=== PATIENT | female | born 1980 | race Caucasian/White ===

== ENCOUNTER → 2016-12-07 09:26 | Emergency (ER) | payer SELFPAY ==
[~2016-12-07] VITALS: Ht 162.6 cm; Wt 79.5 kg
[2016-12-07 09:26] VITALS: BP 107/61
[~2016-12-07 09:26] MED LIST: AMBIEN10 MG PO; ANIMAL CHEWS1 EACH PO; AUGMENTIN; CARAFATE100 MG/ML PO; CYMBALTA20 MG PO; FETZIMA40 MG PO; FLEXERIL10 MG PO; FLINTSTONES1 EACH PO; HYDROCODON-ACE1 EAC7 PO; LEVAQUIN500 MG PO; MELATONIN10 M1 PO; NAPROSYN500 MG PO; PERCOCET 5/31 TABLET PO; PRAVASTATIN SOD40 MG PO; PREDNISONE; PREDNISONE20 MG PO; PROTONIX20 MG PO; TRAZODONE HCL50 MG PO; ZOLOFT50 MG PO; [UNRECOGNIZED DRUG - OTHER] PO
== END | disposition home or self-care (01) ==
LOC: EME 07:06
PROC: 3E0234Z Introduction of Serum, Toxoid and Vaccine into Muscle, Percutaneous Approach (ICD-10-PCS; principal; 2016-12-07)
DX: S91.332A Puncture wound without foreign body, left foot, initial encounter (principal); Z23 Encounter for immunization; W22.8XXA Striking against or struck by other objects, initial encounter; Y93.01 Activity, walking, marching and hiking; Z88.1 Allergy status to other antibiotic agents
CPT/HCPCS: 73630; 99281; 99283

== ENCOUNTER → 2017-10-20 | Outpatient (CLI) | payer SELFPAY | END | disposition home or self-care (01) | LOC: RAD 14:19 | DX: R35.0 Frequency of micturition (principal); Z97.5 Presence of (intrauterine) contraceptive device; Z87.440 Personal history of urinary (tract) infections | CPT/HCPCS: 76775; 76856 ==